=== PATIENT | male | born 1970 | race Two or more races ===

== ENCOUNTER 2018-08-19 14:10 | Emergency (ER) | payer MEDICAID ==
--- NOTE | 2018-08-19 14:33 | ER Document Report ---
ED General - General Stated Complaint: RIGHT ANKLE PAIN Time Seen by Provider: 08/19/18 14:14 Primary Care Provider: ELISABET ANDINO MD [ACTIVE STAFF] - Follow up as needed Notes: Patient is a 48-year-old male that presents to the emergency department for chief complaint of right ankle injury. Patient reports that he slipped on 1 of his steps, and twisted his right ankle and fell down onto his ankle and heard a snap. He had excreting pain, he states that he crawled up into the house, and called the ambulance to bring him to the emergency department. He currently rates his pain as a 6 out of 10, he was given 2 mg of IV Dilaudid by EMS. He denies any numbness, tingling or weakness in his foot or ankle. He states he had surgery prior on his ankle, but he no longer has any hardware. He denies any other injuries, denies head injury or neck injury. States that the pain is limited to his ankle. Past Medical History: Hypothyroidism Past Surgical History: Bilateral ankle surgeries Social History: Admits to smoking cigarettes, denies alcohol or drug use. Family History: Reviewed and noncontributory for presenting illness Allergies: Reviewed, see documented allergy list. REVIEW OF SYSTEMS: Other than noted above, the 12 point review of systems was reviewed with the patient and were negative, all pertinent findings are included in the HPI. PHYSICAL EXAMINATION: Vital signs reviewed, nursing noted reviewed. GENERAL: Well-appearing, well-nourished and in no acute distress. HEAD: Atraumatic, normocephalic. EYES: Eyes appear normal, extraocular movements intact, sclera anicteric, conjunctiva are normal. ENT: nares patent, oropharynx clear without exudates. Moist mucous membranes. NECK: Normal range of motion, supple without lymphadenopathy LUNGS: Breath sounds clear to auscultation bilaterally and equal. No wheezes rales or rhonchi. HEART: Regular rate and rhythm without murmurs ABDOMEN: Soft, nontender, normoactive bowel sounds. No rebound, guarding, or rigidity. No masses appreciated. EXTREMITIES: The right ankle, is tender to palpate on the medial and lateral malleolus, there is some ecchymosis and swelling, minor abrasion noted over the forefoot. Cap refill less than 3 seconds in all digits of the right and left foot, dorsalis pedis pulse is +2/4 and equal bilaterally as well. Sensation is intact distally, patient is able to move all digits without difficulty. Patient does have increased pain with range of motion of the ankle with dorsi and plantar flexion. The rest of his extremity exam is grossly unremarkable. NEUROLOGICAL: No focal neurological deficits. Moves all extremities spontaneously Motor and sensory grossly intact on exam. PSYCH: Normal mood, normal affect. SKIN: Warm, Dry, normal turgor, no rashes or lesions noted on exposed skin Past Medical History - Social History Smoking Status: Current Every Day Smoker Family History: Reviewed & Not Pertinent Course - Re-evaluation Re-evalutation: Patient seen and examined vital signs reviewed. Patient was evaluated and treated as appropriate for the patient's presenting symptoms and complaint, with consideration of any critical or life threatening conditions that may be associated with their obtained history and exam as noted above. Patient was treated with immobilization of his ankle fracture as noted on x-ray, patient is a comminuted distal fibula fracture, with what appears to be avulsion fracture of the medial malleolus. The patient was re-evaluated and was stable and improved, patient was given crutches Evaluation was most consistent with right ankle fracture, patient advised to follow-up with orthopedic surgery, given prescription for pain. Plan of care was discussed with the patient at this point, after careful consideration I feel that that patient can be discharged from the emergency department, the patient was educated treatments and reasons to return to the emergency department based on their presumed diagnosis as noted above, they were advised to followup with a primary care physician in 2-3 days. Patient was agreeable to plan of care. *Note is created using voice recognition software and may contain spelling, syntax or grammatical errors. Ankle X-Ray 08/19/18 14:12 IMPRESSION: May B fracture. Procedures - Immobilization Right Ankle Pre-Proc Neuro Vasc Exam: Normal Immobilizer type: Ankle stirrup, Posterior ankle Performed by: PCT Post-Proc Neuro Vasc Exam: Normal Alignment checked and good: Yes Discharge - Discharge Clinical Impression: Closed right ankle fracture Qualifiers: Encounter type: initial encounter Qualified Code(s): S82.891A - Other fracture of right lower leg, initial encounter for closed fracture Condition: Stable Disposition: HOME, SELF-CARE Instructions: Fractured Ankle (Bimalleolar) ([facility]) Additional Instructions: Please limit any weightbearing to your right foot, and please follow-up with orthopedic surgery, call to schedule an appointment for early next week. Prescriptions: Hydrocodone/Acetaminophen [[place] 5-325 mg Tablet] 1 tab PO Q6H #12 tablet Walker [Folding Walker] 1 each MC ASDIR PRN #1 each PRN Reason: ankle pain with walking Referrals: CLARIBEL MEADOWS MD [ASSOCIATE] - Follow up in 3-5 days
--- NOTE | 2018-08-19 15:07 | RADIOLOGY REPORT (SQ) ---
EXAM DESCRIPTION: ANKLE RIGHT COMPLETE COMPLETED DATE/TIME: 08/19/2018 2:54 pm REASON FOR STUDY: deformity COMPARISON: None. NUMBER OF VIEWS: Three views. TECHNIQUE: AP, lateral, and oblique radiographic images acquired of the right ankle. LIMITATIONS: None. FINDINGS: Oblique fracture through the fibula at the level of the mortise. 1/4 shaft width posterol ateral displacement. Well corticated fragment distal to the medial malleolus. Posterior malleolus i ntact. IMPRESSION: May B fracture. TECHNICAL DOCUMENTATION: JOB ID: [id number] [employer]- All Rights Reserved Reading location - IP/workstation name: [email or web address]
[2018-08-19] MEDS ORDERED: DIPH/PERTUSS(ACELL)/TETANUS VAC/PF 0.5 ML SYR (>=10YO) IM ONE ×2 (15:42→18:15)
[2018-08-19] MEDS ORDERED: HYDROMORPHONE HCL INJ/PF 2 MG/ML AMPULE IV ONE (17:20)
== END 2018-08-19 19:19 | disposition home or self-care (01) ==
LOC: ER 14:10
DX: S82.831A Other fracture of upper and lower end of right fibula, initial encounter for closed fracture (principal); W10.9XXA Fall (on) (from) unspecified stairs and steps, initial encounter; Y92.009 Unspecified place in unspecified non-institutional (private) residence as the place of occurrence of the external cause; F17.210 Nicotine dependence, cigarettes, uncomplicated
CPT/HCPCS: 99283; 90471; 96374; 73610; 90715; 29515; J1170

== ENCOUNTER 2019-04-03 18:36 | Emergency (ER) | payer OTHER ==
[2019-04-03 18:45] VITALS: BP 141/87
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
[2019-04-03] MEDS ORDERED: ACETAMINOPHEN 325 MG TABLET PO ONE (21:53)
== END 2019-04-03 23:27 | disposition left against medical advice (07) ==
LOC: ER 18:36
DX: Z53.21 Procedure and treatment not carried out due to patient leaving prior to being seen by health care provider (principal); M25.511 Pain in right shoulder; M54.2 Cervicalgia; R51 Headache; M54.5 Low back pain; M79.604 Pain in right leg; V87.7XXA Person injured in collision between other specified motor vehicles (traffic), initial encounter; J45.909 Unspecified asthma, uncomplicated
CPT/HCPCS: 70450; 71046; 72110; 72125; 99281